=== PATIENT | male | born 1950 | race Caucasian/White ===

== ENCOUNTER 2017-11-06 10:48 | Outpatient (CLI) | payer MEDICARE, BC ==
--- NOTE | 2017-11-06 14:54 | MRI ---
MRI CERVICAL SPINE NONCONTRAST: HISTORY: Neck pain with radiculopathy. FINDINGS: There is reversal of the normal lordotic curvature of the cervical spine. Vertebral body heights are maintained. Desiccation of all of the intervertebral disks. C2-3: Mild osteophytosis. Severe stenosis right neural foramen. Central canal and left neural fora men are patent. C3-4: Mild osteophytosis. Mild stenosis of each neural foramen. C4-5: Disk space narrowing. Mild posterior osteophyte/disk complex. Circumferential degenerative c hanges with moderate to severe stenosis of the central canal. Mild stenosis right neural foramen. C5-6: Discogenic end plate changes/bone marrow edema most pronounced at this level. Posterior osteo phyte/disk complex. Circumferential degenerative changes with severe stenosis of the central canal. No abnormal signal within the spinal cord. Moderate bilateral foraminal stenoses. C6-7: Disk space narrowing. Very mild disk bulge. Circumferential degenerative changes with mild t o moderate stenosis of the central canal. Mild stenosis left neural foramen. C7-T1: Mild osteophytosis. Central canal and neural foramina are patent. IMPRESSION: Degenerative changes throughout the cervical spine with central canal and foraminal stenoses as detai led above. No evidence of myelomalacia or focal nerve root compression. POS: [facility]
== END 2017-11-06 10:49 | disposition home or self-care (01) ==
LOC: TBSIIMAG 10:48
PROVIDERS: ATTEND Neurological Surgery
DX: M47.22 Other spondylosis with radiculopathy, cervical region (principal); M48.02 Spinal stenosis, cervical region; M99.81 Other biomechanical lesions of cervical region
CPT/HCPCS: 72141